=== PATIENT | female | born 1955 | race Caucasian/White ===

== ENCOUNTER 2024-04-16 06:51 | Day surgery (SDC) | payer BC, MEDICARE ==
[2024-04-14 15:52] LABS: BASOPHILS % (AUTO) 0.7 % (0-1); EOSINOPHILS % (AUTO) 0.5 % (0-6); LYMPHOCYTES # (AUTO) 1.9 X10'3 (1.1-4.8); LYMPHOCYTES % (AUTO) 30.7 % (21-51); MEAN CORPUSCULAR HEMOGLOBIN 31.5 PG (27.0-31.0); MEAN CORPUSCULAR HGB CONC 34.4 g/dL (33.0-36.5); MEAN CORPUSCULAR VOLUME 91.6 FL (78-98); MONOCYTES # (AUTO) 0.6 X10'3 (0-0.9); MONOCYTES % (AUTO) 9.3 % (2-12); NEUTROPHILS # (AUTO) 3.6 X10'3 (1.8-7.7); NEUTROPHILS % (AUTO) 58.8 % (42-75); PRE OP HEMATOCRIT 37.8 % (35.0-45.0); PRE OP PLATELET COUNT 248 X10'3 (140-440); PRE OP WHITE BLOOD COUNT 6.2 10'3 (4.8-10.8); RED BLOOD COUNT 4.13 X10'6 (4.20-5.60); RED CELL DISTRIBUTION WIDTH 14.8 % (11.5-14.5)
[2024-04-14 16:09] LABS: ALBUMIN 3.9 G/DL (3.4-5.0); ALKALINE PHOSPHATASE 81 IU/L (46-116); BLOOD UREA NITROGEN 42 MG/DL (7-18); BUN/CREATININE RATIO 42.4 (10.0-20.0); CALCIUM 9.5 MG/DL (8.5-10.1); CHLORIDE 98 MMOL/L (99-107); CREATININE 0.99 MG/DL (0.40-0.90); PRE OP ALT 26 U/L (30-65); PRE OP ANION GAP 6 (8-16); PRE OP POTASSIUM 3.6 MMOL/L (3.4-5.1); PRE OP SODIUM 137 MMOL/L (135-145); TOTAL CARBON DIOXIDE 33.1 MMOL/L (24-32); eGFR 55 ML/MIN
[2024-04-14 16:39] LABS: ALBUMIN/GLOBULIN RATIO 1.1 (1.1-1.5); PRE OP BILIRUB, TOTAL 0.3 MG/DL (0.0-1.0); PRE OP GLUCOSE 102 MG/DL (70-104); TOTAL PROTEIN 7.6 G/DL (6.4-8.2)
[2024-04-14 16:40] LABS: PRE OP AST 19 U/L (10-37)
[2024-04-14 16:50] LABS: PRE OP PROTIME 10.3 SECONDS (9.0-12.0)
[~2024-04-16] VITALS: Ht 165.1 cm; Wt 76.8 kg
[2024-04-16] VITALS (10 sets, daily range): BP systolic 113–152; BP diastolic 57–78; PULSE 66–81; RESP 14–16; TEMP 97.4; O2SAT 95–100
[~2024-04-16 06:51] MED LIST: LISI1TAB53 PO; PRAV40TA3 PO
[2024-04-16] MEDS: famotidine 20mg tablet PO ONE (07:22)
[2024-04-16] MEDS: levoFLOXACIN-Levaquin 500mg/D5 100 ML IV ONE (07:23)
[2024-04-16] MEDS: ringers solution, lacted 1,000 ML IV SCH (07:25)
[2024-04-16] MEDS ORDERED: morphine 2 MG/ML inj. syringe IV PRN ×2 (08:30→09:50)
[2024-04-16] MEDS ORDERED: labetalol 20mg/4ml (5mg/ml) syringe IV PRN ×2 (08:30→09:50)
[2024-04-16] MEDS ORDERED: meperidine/PF 25mg/ml syringe IV PRN ×5 (08:30→09:50)
[2024-04-16] MEDS ORDERED: enalaprilat dihydrate 2.5mg/2ml vial IV PRN ×2 (08:30→09:50)
[2024-04-16] MEDS ORDERED: ondansetron/PF 4mg/2ml inj IV PRN ×2 (08:30→09:50)
[2024-04-16] MEDS ORDERED: ringers solution, lacted 1,000 ML IV SCH ×2 (08:30→09:50)
[2024-04-16] MEDS ORDERED: proCHLORperazine 10 MG/2 ml inj IV PRN ×2 (08:30→09:50)
[2024-04-16] MEDS ORDERED: morphine 4 MG/ML inj SYRINge IV PRN ×2 (08:30→09:50)
[2024-04-16] MEDS ORDERED: BUPIVAcaine 2.5mg/ml inj 50ml vial (contains preservative) ONE (08:35)
[2024-04-16] MEDS ORDERED: LIDOcaine 1% (10mg/ml)w/preservative inj. 20ml MDV ONE (08:35)
[2024-04-16] MEDS ORDERED: fentaNYL/PF 50MCG/1 ML 2ML syringe ONE (08:44)
[2024-04-16] MEDS ORDERED: LIDOcaine 2% (20mg/ml) 5ml vial ONE (08:45)
[2024-04-16] MEDS ORDERED: midazolam 1 mg/ML 2ml injection ONE (08:45)
[2024-04-16] MEDS ORDERED: propofol inj 20 ML IV ONE (08:45)
[2024-04-16] MEDS ORDERED: sevoflurane 250ml liquid IH ONE (09:05)
[2024-04-16] MEDS: BUPIVAcaine 2.5mg/ml inj 50ml vial (contains preservative) SQ ONE (10:30)
[2024-04-16] MEDS ORDERED: ondansetron/PF 4mg/2ml inj ONE (10:51)
[2024-04-16] MEDS ORDERED: ROPIVAcaine 0.5% (5mg/ml) 30ml vial ONE (10:51)
[2024-04-16] MEDS: meperidine/PF 25mg/ml syringe IV PRN (11:17)
== END 2024-04-16 12:10 | disposition home or self-care (01) ==
LOC: PAS 06:51
PROVIDERS: ATTEND Surgery
DX: C50.112 Malignant neoplasm of central portion of left female breast (principal); Z79.01 Long term (current) use of anticoagulants; Z79.899 Other long term (current) drug therapy; I10 Essential (primary) hypertension; M19.90 Unspecified osteoarthritis, unspecified site; E78.5 Hyperlipidemia, unspecified; Z87.891 Personal history of nicotine dependence; Z98.890 Other specified postprocedural states; Z90.49 Acquired absence of other specified parts of digestive tract; Z88.0 Allergy status to penicillin; Z88.8 Allergy status to other drugs, medicaments and biological substances
CPT/HCPCS: 19301; 36415; 38525; 38900; 64999; 80053; 82948; 85025; 85610; 85730; 93005; J1100; J1956; J2003; J2175; J2250; J2405; J2704; J2795; J3010; J3490; J7030; J7120; Z7506; Z7508; Z7512; A4215; A4618; A6449; A7000